=== PATIENT | male | born 1995 | race Caucasian/White ===

== ENCOUNTER 2021-11-16 14:23 | Emergency (ER) | payer OTHER ==
[2021-11-16 15:16] LABS: Hematocrit 43.1 % (39.6-49.0); Lymphocytes % 11.5 % (15.3-44.8); MPV 8.4 fL (7.6-11.3); RBC Red Blood Cell Count 4.78 M/uL (4.33-5.43)
[2021-11-16 15:33] LABS: Urine Blood Negative (Negative); Urine Glucose Negative (Negative); Urine Protein Negative (Negative); Urine Specific Gravity 1.015 (1.005-1.030)
[2021-11-16 15:35] LABS: Albumin 3.9 g/dL (3.4-5.0); Bilirubin Total 0.6 mg/dL (0.2-1.0); Potassium 3.8 mmol/L (3.5-5.1); Protein, Total 7.6 g/dL (6.4-8.2); Troponin High Sensitivity 3.9 pg/mL (<58.9)
--- NOTE | 2021-11-16 16:08 | ER ---
Nurse's Notes [facility] Name: Juancho Bass Age: 26 yrs Sex: Male : 1995 Arrival Date: 11/16/2021 Time: 14:24 Bed 24 Private MD: Diagnosis: Essential (primary) hypertension Presentation: 11/16 14:45 Chief complaint: Patient states: High BP of 185 systolic, states has hx of high BP and vg1 does not take any medications for it. Pt states dizziness, nausea, and unable to focus eyes. Denies chest pain or SOB. Stated drinks two energy drinks/day and use of chewing tobacco. Coronavirus screen: Vaccine status: Patient reports being unvaccinated. Client denies travel out of the [place] in the last 14 days. Ebola Screen: Patient negative for fever greater than or equal to 101.5 degrees Fahrenheit, and additional compatible Ebola Virus Disease symptoms. Initial Sepsis Screen: Does the patient meet any 2 criteria? No. Patient's initial sepsis screen is negative. Does the patient have a suspected source of infection? No. Patient's initial sepsis screen is negative. Risk Assessment: Do you want to hurt yourself or someone else? Patient reports no desire to harm self or others. Onset of symptoms was November 16, 2021. 14:45 Method Of Arrival: Ambulatory vg1 14:45 Acuity: JREICHO 3 vg1 Triage Assessment: 14:49 General: Appears in no apparent distress. uncomfortable, Behavior is calm, cooperative. vg1 Pain: Denies pain. Cardiovascular: Patient's skin is warm and dry. Historical: - Allergies: 14:49 General Anesthesia; vg1 - Home Meds: 14:49 Albuterol Nebulizer [Active]; vg1 - PMHx: 14:49 Hypertensive disorder; Asthma; vg1 - Immunization history:: Client reports having NOT received the Covid vaccine. - Social history:: Smoking status: Patient reports use of chewing tobacco. - Family history:: not pertinent. Screenin:00 Abuse screen: Denies threats or abuse. Nutritional screening: No deficits noted. jb4 Tuberculosis screening: No symptoms or risk factors identified. Fall Risk None identified. Assessment: 16:00 General: Appears in no apparent distress. comfortable, Behavior is calm, cooperative, jb4 appropriate for age. Pain: Complains of pain in chest. Neuro: Level of Consciousness is awake, alert, obeys commands. Cardiovascular: Patient's skin is warm and dry. Respiratory: Airway is patent Respiratory effort is even, unlabored, Respiratory pattern is regular. GI: No signs and/or symptoms were reported involving the gastrointestinal system. : No signs and/or symptoms were reported regarding the genitourinary system. EENT: No signs and/or symptoms were reported regarding the EENT system. Derm: Skin is intact, Skin is pink, warm \T\ dry. Musculoskeletal: Circulation, motion, and sensation intact. Range of motion: intact in all extremities. Vital Signs: 14:45 BP 148 / 110; Pulse 80; Resp 16; Temp 98.9; Pulse Ox 96% on R/A; Weight 86.18 kg; vg1 Height 6 ft. 3 in. (190.50 cm); Pain 0/10; 16:00 BP 166 / 106; Pulse 76; Resp 16; Pulse Ox 100% on R/A; jb4 14:45 Body Mass Index 23.75 (86.18 kg, 190.50 cm) vg1 ED Course: 14:24 Patient arrived in ED. am2 14:39 Rich Flores MD is Attending Physician. [facility] 14:49 Triage completed. vg1 14:49 Arm band placed on. vg1 15:10 Initial lab(s) drawn, by al, sent to lab. Inserted saline lock: 20 gauge in right iw antecubital area, using aseptic technique. Blood collected. 15:23 Jose Roberto Page, SOFÍA is Primary Nurse. jb4 15:41 Chest Single View XRAY In Process Unspecified. EDMS 16:00 Patient has correct armband on for positive identification. Bed in low position. Call jb4 light in reach. Side rails up X 1. dock worker on. Pulse ox on. NIBP on. 16:08 Jesus Monroe MD is Referral Physician. edith 16:28 No provider procedures requiring assistance completed. IV discontinued, intact, jb4 bleeding controlled, No redness/swelling at site. Pressure dressing applied. Administered Medications: 16:13 Not Given (Patient Refused): NS 0.9% 1000 ml IV at 125 ml/hr continuous jb4 16:13 Drug: Lisinopril 10 mg Route: PO; jb4 16:28 Follow up: Response: No adverse reaction jb4 16:13 Drug: Aspirin Chewable Tablet 81 mg Route: PO; jb4 16:28 Follow up: Response: No adverse reaction jb4 Outcome: 16:08 Discharge ordered by MD. sharma 16:28 Discharged to home ambulatory. jb4 16:28 Condition: stable 16:28 Discharge instructions given to patient, Instructed on discharge instructions, follow up and referral plans. medication usage, Demonstrated understanding of instructions, follow-up care, medications, Prescriptions given X 1. 16:28 Patient left the ED. jb4 Signatures: Dispatcher [employer] EDRich Rocha MD MD cha Williams, Irene, Jose Roberto Chau RN, RN RN jb4 Delia Rowe Victoria, RN RN vg1
--- NOTE | 2021-11-16 16:08 | EDPHYS ---
Physician Documentation [facility] Name: Juancho Bass Age: 26 yrs Sex: Male : 1995 Arrival Date: 11/16/2021 Time: 14:24 Bed 24 Private MD: ED Physician Rich Flores HPI: 11/16 16:05 This 26 yrs old Male presents to ER via Ambulatory with complaints of High edith Blood Pressure. 16:05 The patient has elevated blood pressure and discovered this at home, with a home edith device. Onset: The symptoms/episode began/occurred 2 day(s) ago. Modifying factors: The symptoms are aggravated by activity, The symptoms are alleviated by remaining still. Associated signs and symptoms: The patient has no apparent associated signs or symptoms. Severity of symptoms: At its worst the blood pressure was mild, moderate, in the emergency department the blood pressure is unchanged. The patient has experienced similar episodes in the past, multiple times. Historical: - Allergies: 14:49 General Anesthesia; vg1 - Home Meds: 14:49 Albuterol Nebulizer [Active]; vg1 - PMHx: 14:49 Hypertensive disorder; Asthma; vg1 - Immunization history:: Client reports having NOT received the Covid vaccine. - Social history:: Smoking status: Patient reports use of chewing tobacco. - Family history:: not pertinent. ROS: 16:05 Constitutional: Negative for fever, chills, and weight loss, Eyes: Negative for injury, edith pain, redness, and discharge, ENT: Negative for injury, pain, and discharge, Neck: Negative for injury, pain, and swelling, Cardiovascular: Negative for chest pain, palpitations, and edema, Respiratory: Negative for shortness of breath, cough, wheezing, and pleuritic chest pain, Abdomen/GI: Negative for abdominal pain, nausea, vomiting, diarrhea, and constipation, Back: Negative for injury and pain, : Negative for injury, bleeding, discharge, and swelling, MS/Extremity: Negative for injury and deformity, Skin: Negative for injury, rash, and discoloration, Neuro: Negative for headache, weakness, numbness, tingling, and seizure, Psych: Negative for depression, anxiety, suicide ideation, homicidal ideation, and hallucinations, Allergy/Immunology: Negative for hives, rash, and allergies, Endocrine: Negative for neck swelling, polydipsia, polyuria, polyphagia, and marked weight changes, Hematologic/Lymphatic: Negative for swollen nodes, abnormal bleeding, and unusual bruising. Exam: 16:05 Constitutional: This is a well developed, well nourished patient who is awake, alert, edith and in no acute distress. Head/Face: Normocephalic, atraumatic. Eyes: Pupils equal round and reactive to light, extra-ocular motions intact. Lids and lashes normal. Conjunctiva and sclera are non-icteric and not injected. Cornea within normal limits. Periorbital areas with no swelling, redness, or edema. ENT: Nares patent. No nasal discharge, no septal abnormalities noted. Tympanic membranes are normal and external auditory canals are clear. Oropharynx with no redness, swelling, or masses, exudates, or evidence of obstruction, uvula midline. Mucous membranes moist. Neck: Trachea midline, no thyromegaly or masses palpated, and no cervical lymphadenopathy. Supple, full range of motion without nuchal rigidity, or vertebral point tenderness. No Meningismus. Chest/axilla: Normal chest wall appearance and motion. Nontender with no deformity. No lesions are appreciated. Cardiovascular: Regular rate and rhythm with a normal S1 and S2. No gallops, murmurs, or rubs. Normal PMI, no JVD. No pulse deficits. Respiratory: Lungs have equal breath sounds bilaterally, clear to auscultation and percussion. No rales, rhonchi or wheezes noted. No increased work of breathing, no retractions or nasal flaring. Abdomen/GI: Soft, non-tender, with normal bowel sounds. No distension or tympany. No guarding or rebound. No evidence of tenderness throughout. Back: No spinal tenderness. No costovertebral tenderness. Full range of motion. Male : Normal genitalia with no discharge or lesions. Skin: Warm, dry with normal turgor. Normal color with no rashes, no lesions, and no evidence of cellulitis. MS/ Extremity: Pulses equal, no cyanosis. Neurovascular intact. Full, normal range of motion. Neuro: Awake and alert, GCS 15, oriented to person, place, time, and situation. Cranial nerves II-XII grossly intact. Motor strength 5/5 in all extremities. Sensory grossly intact. Cerebellar exam normal. Normal gait. Psych: Awake, alert, with orientation to person, place and time. Behavior, mood, and affect are within normal limits. Vital Signs: 14:45 BP 148 / 110; Pulse 80; Resp 16; Temp 98.9; Pulse Ox 96% on R/A; Weight 86.18 kg; vg1 Height 6 ft. 3 in. (190.50 cm); Pain 0/10; 16:00 BP 166 / 106; Pulse 76; Resp 16; Pulse Ox 100% on R/A; jb4 14:45 Body Mass Index 23.75 (86.18 kg, 190.50 cm) vg1 MDM: 15:09 Patient medically screened. [facility] 11/16 14:40 Order name: CBC with Diff; Complete Time: 15:54 [facility] 11/16 14:40 Order name: Comprehensive Metabolic Panel; Complete Time: 15:54 [facility] 11/16 14:40 Order name: Troponin High Sensitivity; Complete Time: 15:54 [facility] 11/16 14:40 Order name: BNP; Complete Time: 15:54 [facility] 11/16 14:40 Order name: UDS [facility] 11/16 15:33 Order name: Urine Dipstick-Ancillary; Complete Time: 15:54 EDMS 11/16 14:40 Order name: EKG; Complete Time: 14:41 [facility] 11/16 14:40 Order name: EKG - Nurse/Tech; Complete Time: 15:34 [facility] 11/16 14:40 Order name: Chest Single View XRAY [facility] 11/16 14:40 Order name: Urine Dipstick-Ancillary (obtain specimen); Complete Time: 15:34 edith Administered Medications: 16:13 Not Given (Patient Refused): NS 0.9% 1000 ml IV at 125 ml/hr continuous jb4 16:13 Drug: Lisinopril 10 mg Route: PO; jb4 16:28 Follow up: Response: No adverse reaction jb4 16:13 Drug: Aspirin Chewable Tablet 81 mg Route: PO; jb4 16:28 Follow up: Response: No adverse reaction jb4 Disposition Summary: 11/16/21 16:08 Discharge Ordered Location: Home edith Problem: new edith Symptoms: have improved edith Condition: Stable edith Diagnosis - Essential (primary) hypertension edith Followup: edith - With: Private Physician - When: 2 - 3 days - Reason: Recheck today's complaints, Continuance of care, Re-evaluation by your physician Followup: edith - With: Jesus Monroe MD - When: 2 - 3 days - Reason: Recheck today's complaints, Re-evaluation by your physician Discharge Instructions: - Discharge Summary Sheet edith - Hypertension, Adult edith - Hypertension, Adult, [id number] edith - How to Take Your Blood Pressure, [id number] edith - Aspirin and Your Heart edith - Managing Your Hypertension edith Forms: - Medication Reconciliation Form edith - Thank You Letter edith - Antibiotic Education edith - Prescription Opioid Use edith Prescriptions: - Lisinopril 10 mg Oral Tablet - take 1 tablet by ORAL route once daily; 20 tablet; Refills: 0, Product edith Selection Permitted Signatures: Dispatcher [employer] Rich Weiss MD MD cha Bryson, James, RN RN jb4 Elicia Nunn RN RN vg1
--- NOTE | 2021-11-16 16:08 | RAD REPORT ---
EXAM DESCRIPTION: Melchor Single View11/16/2021 3:40 pm CLINICAL HISTORY: Chest pain COMPARISON: none FINDINGS: The lungs appear clear of acute infiltrate. The heart is normal size IMPRESSION: No acute abnormalities displayed
[2021-11-16] MEDS ORDERED: NA CHLORIDE 0.9% 1,000 ML ONE (16:12)
[2021-11-16] MEDS ORDERED: ASPIRIN 81 MG CHEWABLE TABLET ONE (16:12)
[2021-11-16] MEDS ORDERED: lisinopriL 10 MG TAB ONE (16:12)
[2021-11-16 16:13] LABS: Barbiturates NEGATIVE (NEGATIVE); Benzodiazepines NEGATIVE (NEGATIVE); Cocaine NEGATIVE (NEGATIVE); METHAMPHETAM NEGATIVE (NEGATIVE); Methadone NEGATIVE (NEGATIVE); Opiates NEGATIVE (NEGATIVE); Phencyclidine NEGATIVE (NEGATIVE); THC Cannibis NEGATIVE (NEGATIVE)
[2021-11-16 22:57] VITALS: TEMP 98.9
[2021-11-16 22:58] VITALS: BP 166/106; O2SAT 100
== END 2021-11-16 16:28 | disposition home or self-care (01) ==
LOC: ER 14:23
DX: I10 Essential (primary) hypertension (principal); J45.909 Unspecified asthma, uncomplicated; F17.220 Nicotine dependence, chewing tobacco, uncomplicated; Z88.4 Allergy status to anesthetic agent
CPT/HCPCS: 93005; 85025; 36415; 81003; 84484; 80053; 83880; 80307; 71045; 99284; J7030

== ENCOUNTER 2021-12-18 23:14 | Emergency (ER) | payer OTHER ==
--- NOTE | 2021-12-19 01:09 | ER ---
Nurse's Notes [facility] Name: Juancho Bass Age: 26 yrs Sex: Male : 1995 Arrival Date: 12/18/2021 Time: 23:16 Bed Waiting Private MD: Diagnosis: Presentation: 12/19 00:16 Chief complaint: Patient states: Reports high blood pressure tonight of 167/120; States lp1 normal blood pressure is 150/100; States he checks his BP daily, Denies chest pain, shortness of breath, dizziness. Coronavirus screen: At this time, the client does not indicate any symptoms associated with coronavirus-19. Ebola Screen: No symptoms or risks identified at this time. Risk Assessment: Do you want to hurt yourself or someone else? Patient reports no desire to harm self or others. Onset of symptoms. 00:16 Method Of Arrival: Ambulatory lp1 00:16 Acuity: JERICHO 3 lp1 00:19 Initial Sepsis Screen: Does the patient meet any 2 criteria? No. Patient's initial lp1 sepsis screen is negative. Does the patient have a suspected source of infection? No. Patient's initial sepsis screen is negative. 00:23 Note Patient reports "I will not be admitted, I have to go to work. I have already been lp1 on three different blood pressure medicines and none of them work"; Patient educated on risks of high blood pressure, discussed staying for treatment during triage. Historical: - Allergies: 00:17 general anesthesia; lp1 - Home Meds: 00:17 Albuterol Inhl [Active]; lp1 - PMHx: 00:17 Asthma; Hypertensive disorder; lp1 - PSHx: 00:17 knee surgery; lp1 - Immunization history:: Adult Immunizations up to date. - Social history:: Smoking status: Patient denies any tobacco usage or history of. Patient uses alcohol, only on a social basis. Vital Signs: 00:19 BP 169 / 123 RA; Pulse 71; Resp 16; Temp 98.5(TE); Pulse Ox 100% on R/A; Weight 88.45 lp1 kg (R); Height 6 ft. 3 in. (190.50 cm); Pain 0/10; 00:21 BP 165 / 117 LA; lp1 00:19 Body Mass Index 24.37 (88.45 kg, 190.50 cm) lp1 ED Course: 12/18 23:16 Patient arrived in ED. mathew 12/19 00:16 Arm band placed on right wrist. lp1 00:17 Triage completed. lp1 00:40 Patient's name was called from ER lobby. Unable to locate patient. Will disposition as lp1 left without being seen by a provider. Administered Medications: No medications were administered Medication: 00:22 VIS not applicable for this client. lp1 Outcome: 01:09 Patient left the ED. lp1 Signatures: Nguyen Ayoub RN RN lp1 Elise Gannon Corrections: (The following items were deleted from the chart) 04:58 04:09 Note Patient reports "I don't want to lp1 lp1
[2021-12-19 01:14] VITALS: TEMP 98.5; O2SAT 100
[2021-12-19 01:15] VITALS: BP 165/117
== END 2021-12-19 01:09 | disposition left against medical advice (07) ==
LOC: ER 23:14
DX: I10 Essential (primary) hypertension (principal); J45.909 Unspecified asthma, uncomplicated; Z53.21 Procedure and treatment not carried out due to patient leaving prior to being seen by health care provider
CPT/HCPCS: 99281